=== PATIENT | male | born 1990 | race Caucasian/White ===

== ENCOUNTER 2018-01-07 03:07 | Day surgery (SDC) | payer BC, OTHER ==
[2018-01-07] MEDS ORDERED: Sodium Chloride 0.9% 10 ML Syringe FLUSH PRN (03:19)
[2018-01-07] MEDS ORDERED: Sodium Chloride 0.9% 2.5 ML Syringe FLUSH PRN (03:19)
[2018-01-07] MEDS ORDERED: Ondansetron 4 MG/2 ML SDV ONE ×2 (03:25→06:54)
[2018-01-07] MEDS ORDERED: Sodium Chloride 0.9% 1,000 ML IV ONE (03:28)
[2018-01-07] MEDS ORDERED: HYDROmorphone 1 MG/ML Syringe IVPUSH ONE (03:29)
[2018-01-07] MEDS ORDERED: Ondansetron 4 MG/2 ML SDV IVPUSH PRN (03:30)
--- NOTE | 2018-01-07 03:34 | EDM.PDOC ---
ED HPI GENERAL MEDICAL PROBLEM - General Chief Complaint: Abdominal Pain Stated Complaint: THROWING UP Time Seen by Provider: 01/07/18 03:15 - History of Present Illness INITIAL COMMENTS - FREE TEXT/NARRATIVE: HISTORY AND PHYSICAL: History of present illness: The patient is a 27-year-old male who presents complaining of a right lower quadrant pain and vomiting. The patient says that earlier today he had diffuse abdominal pain that started around 6 PM and then it seemed to localize in the right lower quadrant and even start vomiting until approximately 2 hours ago. Mom says that he had an "upset stomach" on and off for the last 2 days but it seemed to accelerate today. The patient has not had any upper respiratory symptoms cough chest pain or shortness of breath no fevers or chills or sore throat and no urinary complaints. He has no history of any abdominal surgeries. He has not eaten any new foods but he does eat fast foods and has no history of food intolerance. He has not had any recent alcohol consumption and he does not take any medications for these symptoms prior to coming here. The patient has no GI history and follows with Dr. Ron Negro at [facility] but only sees him as needed for medical complaints but not for checkups. He denies any black or bloody stools and no black or blood in his vomitus. He has normal regular bowel movements. Review of systems: As per history of present illness and below otherwise all systems reviewed and negative. Past medical history: As per history of present illness and as reviewed below otherwise noncontributory. Surgical history: As per history of present illness and as reviewed below otherwise noncontributory. Social history: No reported history of drug or alcohol abuse. Family history: As per history of present illness and as reviewed below otherwise noncontributory. Physical exam: General: Well-developed well-nourished mildly overweight man is nontoxic and vital signs are reviewed by me. Patient is having dry heaves when initially seen him in the ED for my evaluation and the small amount of vomitus as being produced is whitish in color. HEENT: Atraumatic, normocephalic, negative for conjunctival pallor or scleral icterus, mucous membranes tacky, throat clear, neck supple, nontender, trachea midline. Lungs: Clear to auscultation, breath sounds equal bilaterally, chest nontender. Heart: S1S2, regular rate and rhythm no overt murmurs Abdomen: Soft, nondistended, hypoactive bowel sounds and no tympany on percussion but there is tenderness in the right lower quadrant with some voluntary guarding but no involuntary guarding or rebound. Negative for masses or hepatosplenomegaly. Negative for costovertebral tenderness. Pelvis: Stable nontender. Genitourinary: Deferred. Rectal: Deferred. Extremities: Atraumatic, negative for cords or calf pain. Neurovascular unremarkable. Neuro: Awake, alert, oriented. Cranial nerves II through XII unremarkable. Cerebellum unremarkable. Motor and sensory unremarkable throughout. Exam nonfocal. Skin: Normal turgor noted and some any overt rashes or lesion and because the patient is actively having dry heaves intermittently he is sweaty Diagnostics: CBC CMP amylase lipase CT scan of the abdomen and pelvis Therapeutics: IV fluids Zofran Dilaudid Mefoxin Testing results were discussed with the patient and parents at bedside and were discussed with Dr. Luong at 5:16 AM. The patient will remain in the emergency department until Dr. Luong comes in and he will take him to surgery. He requests that Mefoxin IV be given. The patient has been comfortable in the ED with less pain no nausea no vomiting and no longer diaphoretic. Impression: Acute appendicitis Definitive disposition and diagnosis as appropriate pending reevaluation and review of above. abdomen Pain Score (Numeric/FACES): 8 - Related Data Allergies Allergy/AdvReac Type Severity Reaction Status Date / Time codeine Allergy Rash Verified 01/07/18 03:29 Home Meds: Home Meds . [No Known Home Meds] 01/07/18 [History] Past Medical History - Past Health History Medical/Surgical History: Denies Medical/Surgical History - Infectious Disease History Infectious Disease History: Reports: Chicken Pox, Measles Social & Family History - Family History Family Medical History: Noncontributory - Tobacco Use Smoking Status *Q: Never Smoker Second Hand Smoke Exposure: No - Caffeine Use Caffeine Use: Reports: Energy Drinks - Recreational Drug Use Recreational Drug Use: No ED ROS GENERAL - Review of Systems Review Of Systems: ROS reveals no pertinent complaints other than HPI. ED EXAM, GENERAL - Physical Exam Exam: See Below (See dictation) Course - Vital Signs Last Recorded V/S: Last Vital Signs Temp 36.4 C 01/07/18 05:03 Pulse 63 01/07/18 05:03 Resp 17 01/07/18 05:03 BP 118/71 01/07/18 05:03 Pulse Ox 96 01/07/18 05:03 - Orders/Labs/Meds Orders: Active Orders 24 hr Category Date Time Status Patient Status [ADT] Stat ADT 01/07/18 05:21 Ordered Abdomen Pelvis w Cont [CT] Stat Exams 01/07/18 03:28 Taken Lactated Ringers [Ringers, Lactated] 1,000 ml Med 01/07/18 04:45 Active IV ASDIRECTED Sodium Chloride 0.9% [Saline Flush] Med 01/07/18 03:19 Active 10 ml FLUSH ASDIRECTED PRN Sodium Chloride 0.9% [Saline Flush] Med 01/07/18 03:19 Active 2.5 ml FLUSH ASDIRECTED PRN cefOXitin [Mefoxin in Dextrose,Iso-Osm 2 GM/50 ML] 2 gm Med 01/07/18 05:18 Ordered Premix Bag 1 bag IV ONETIME Saline Lock Insert [OM.PC] Stat Oth 01/07/18 03:19 Ordered Medication Orders Lactated Ringer's (Ringers, Lactated) 1,000 mls @ 150 mls/hr IV ASDIRECTED MONICA Last Admin: 01/07/18 04:59 Dose: 150 mls/hr Cefoxitin Sodium 2 gm/ Premix 50 mls @ 100 mls/hr IV ONETIME ONE Stop: 01/07/18 05:47 Sodium Chloride (Saline Flush) 10 ml FLUSH ASDIRECTED PRN PRN Reason: Keep Vein Open Sodium Chloride (Saline Flush) 2.5 ml FLUSH ASDIRECTED PRN PRN Reason: Keep Vein Open Labs: Laboratory Tests 01/07/18 01/07/18 Range/Units 03:24 03:34 WBC 15.36 H (4.0-11.0) K/uL RBC 4.77 (4.50-5.90) M/uL Hgb 14.8 (13.0-17.0) g/dL Hct 42.5 (38.0-50.0) % MCV 89.1 (80.0-98.0) fL MCH 31.0 (27.0-32.0) pg MCHC 34.8 (31.0-37.0) g/dL RDW Std Deviation 40.5 (28.0-62.0) fl RDW Coeff of Ne 13 (11.0-15.0) % Plt Count 242 (150-400) K/uL MPV 8.60 (7.40-12.00) fL Neut % (Auto) 84.8 H (48.0-80.0) % Lymph % (Auto) 7.5 L (16.0-40.0) % [place] % (Auto) 7.2 (0.0-15.0) % Eos % (Auto) 0.3 (0.0-7.0) % Baso % (Auto) 0.2 (0.0-1.5) % Neut # (Auto) 13.0 H (1.4-5.7) K/uL Lymph # (Auto) 1.2 (0.6-2.4) K/uL [place] # (Auto) 1.1 H (0.0-0.8) K/uL Eos # (Auto) 0.1 (0.0-0.7) K/uL Baso # (Auto) 0.0 (0.0-0.1) K/uL Nucleated RBC % 0.0 /100WBC Nucleated RBCs # 0 K/uL Sodium 140 (136-148) mmol/L Potassium 4.7 (3.5-5.1) mmol/L Chloride 105 (98-107) mmol/L Carbon Dioxide 24.9 (21.0-32.0) mmol/L BUN 18 (7.0-18.0) mg/dL Creatinine 1.0 (0.8-1.3) mg/dL Est Cr Clr Drug Dosing 137.43 mL/min Estimated GFR (MDRD) > 60.0 ml/min Glucose 143 H (74-106) mg/dL Calcium 8.4 L (8.5-10.1) mg/dL Total Bilirubin 0.7 (0.2-1.0) mg/dL AST 20 (15-37) IU/L ALT 43 (14-63) IU/L Alkaline Phosphatase 95 (46-116) U/L Total Protein 6.6 (6.4-8.2) g/dL Albumin 3.8 (3.4-5.0) g/dL Globulin 2.8 (2.0-3.5) g/dL Albumin/Globulin Ratio 1.4 (1.3-2.8) Amylase 58 (25-115) U/L Lipase 154 (73-393) U/L Meds: Medications Generic Name Dose Route Start Last Admin Trade Name Freq PRN Reason Stop Dose Admin Lactated Ringer's 1,000 mls @ 150 mls/hr 01/07/18 04:45 01/07/18 04:59 Ringers, Lactated IV 150 mls/hr ASDIRECTED MONICA Administration Cefoxitin Sodium 2 gm/ Premix 50 mls @ 100 mls/hr 01/07/18 05:18 IV 01/07/18 05:47 ONETIME ONE Sodium Chloride 10 ml 01/07/18 03:19 Saline Flush FLUSH ASDIRECTED PRN Keep Vein Open Sodium Chloride 2.5 ml 01/07/18 03:19 Saline Flush FLUSH ASDIRECTED PRN Keep Vein Open Discontinued Medications Generic Name Dose Route Start Last Admin Trade Name Freq PRN Reason Stop Dose Admin Hydromorphone HCl 1 mg 01/07/18 03:29 01/07/18 03:33 Dilaudid IVPUSH 01/07/18 03:30 1 mg ONETIME ONE Administration Sodium Chloride 1,000 mls @ 999 mls/hr 01/07/18 03:28 01/07/18 03:30 Normal Saline IV 01/07/18 04:28 999 mls/hr STAT ONE Administration Iopamidol 100 ml 01/07/18 05:03 01/07/18 05:04 Isovue Multipack-370 (76%) IVPUSH 01/07/18 05:04 100 ml ONETIME STA Administration Ondansetron HCl Confirm 01/07/18 03:25 01/07/18 03:41 Zofran Administered 01/07/18 03:26 Not Given Dose 4 mg .ROUTE .STK-MED ONE Ondansetron HCl 4 mg 01/07/18 03:30 01/07/18 03:33 Zofran IVPUSH 4 mg Q4H PRN Administration Vomiting Departure - Departure Time of Disposition: 05:23 Disposition: DC/Tfer to Other 70 Condition: Good Clinical Impression: Appendicitis Qualifiers: Appendicitis type: acute appendicitis Acute appendicitis type: unspecified acute appendicitis type Qualified Code(s): K35.80 - Unspecified acute appendicitis - Discharge Information Referrals: Ron Mayo MD [Primary Care Provider] - Forms: ED Department Discharge - My Orders Last 24 Hours: My Active Orders 01/07/18 03:19 Sodium Chloride 0.9% [Saline Flush] 10 ml FLUSH ASDIRECTED PRN Sodium Chloride 0.9% [Saline Flush] 2.5 ml FLUSH ASDIRECTED PRN Saline Lock Insert [OM.PC] Stat 01/07/18 03:28 Abdomen Pelvis w Cont [CT] Stat 01/07/18 04:45 Lactated Ringers [Ringers, Lactated] 1,000 ml IV ASDIRECTED 01/07/18 05:18 cefOXitin [Mefoxin in Dextrose,Iso-Osm 2 GM/50 ML] 2 gm Premix Bag 1 bag IV ONETIME 01/07/18 05:21 Patient Status [ADT] Stat - Assessment/Plan Last 24 Hours: My Active Orders 01/07/18 03:19 Sodium Chloride 0.9% [Saline Flush] 10 ml FLUSH ASDIRECTED PRN Sodium Chloride 0.9% [Saline Flush] 2.5 ml FLUSH ASDIRECTED PRN Saline Lock Insert [OM.PC] Stat 01/07/18 03:28 Abdomen Pelvis w Cont [CT] Stat 01/07/18 04:45 Lactated Ringers [Ringers, Lactated] 1,000 ml IV ASDIRECTED 01/07/18 05:18 cefOXitin [Mefoxin in Dextrose,Iso-Osm 2 GM/50 ML] 2 gm Premix Bag 1 bag IV ONETIME 01/07/18 05:21 Patient Status [ADT] Stat
[2018-01-07 04:38] LABS: CHLORIDE,CL 105 mmol/L (98-107); SODIUM,NA 140 mmol/L (136-148)
[2018-01-07] MEDS ORDERED: Lactated Ringers 1,000 ML IV SCH ×2 (04:45→08:30)
[2018-01-07] MEDS ORDERED: Iopamidol 755 MG/ML 500 ML Multipack Bottle IVPUSH STA (05:03)
[2018-01-07] MEDS ORDERED: cefOXitin 2 GM in Premix Bag 1 BAG IV ONE (05:18)
--- NOTE | 2018-01-07 06:27 | PCM.HP ---
H&P History of Present Illness - General Date of Service: 01/07/18 Admit Problem/Dx: Admission Diagnosis/Problem Admission Diagnosis/Problem Acute appendicitis Source of Information: Patient, Family History Limitations: Reports: No Limitations - History of Present Illness Initial Comments - Free Text/Narative: Patient is a 27-year-old gentleman who became ill about 6:00 last night. Initially distended vague abdominal pain. Pain progressively that he is now unable to stand up straight and walk. He has had multiple episodes of nausea and vomiting. No diarrhea. Pain has now localized to the right lower quadrant. Symptom Onset Date: 01/06/18 Symptom Onset Time: 18:00 Duration of Symptoms: Reports: Getting Worse Location: Reports: Abdomen Quality: Reports: Ache, Pressure Severity: Moderate Improves with: Reports: Rest Worsens with: Reports: Movement Context: Reports: Sick Contact Associated Symptoms: Reports: Nausea/Vomiting abdomen Pain Score (Numeric/FACES): 8 - Related Data Allergies/Adverse Reactions: Allergies Allergy/AdvReac Type Severity Reaction Status Date / Time codeine Allergy Rash Verified 01/07/18 03:29 Home Medications: Home Meds . [No Known Home Meds] 01/07/18 [History] Past Medical History - Past Health History Medical/Surgical History: Denies Medical/Surgical History - Infectious Disease History Infectious Disease History: Reports: Chicken Pox, Measles Social & Family History - Family History Family Medical History: Noncontributory - Tobacco Use Smoking Status *Q: Never Smoker Second Hand Smoke Exposure: No - Caffeine Use Caffeine Use: Reports: Energy Drinks - Recreational Drug Use Recreational Drug Use: No H&P Review of Systems - Review of Systems: Review Of Systems: See Below General: Reports: Fever. Denies: Chills HEENT: Reports: No Symptoms Pulmonary: Denies: Shortness of Breath, Wheezing Cardiovascular: Denies: Chest Pain Gastrointestinal: Reports: Abdominal Pain, Anorexia, Nausea, Vomiting Genitourinary: Reports: No Symptoms Musculoskeletal: Reports: No Symptoms Skin: Reports: No Symptoms Psychiatric: Reports: No Symptoms Neurological: Reports: No Symptoms Hematologic/Lymphatic: Reports: No Symptoms Immunologic: Reports: No Symptoms Exam - Exam Exam: See Below - Vital Signs Vital Signs: Last Vital Signs Temp 97.6 F 01/07/18 05:03 Pulse 66 01/07/18 05:53 Resp 17 01/07/18 05:53 BP 139/89 01/07/18 05:53 Pulse Ox 96 01/07/18 05:53 Weight: 255 lb - Exam General: Alert, Oriented, Cooperative, Mild Distress HEENT: Conjunctiva Clear, EACs Clear, Nares Patent, Pupils Equal, Pupils Reactive, PERRLA Neck: Supple, Trachea Midline Lungs: Clear to Auscultation, Normal Respiratory Effort Cardiovascular: Regular Rate, Regular Rhythm. No: Tachycardia GI/Abdominal Exam: Soft, No Distention, Rebound, Tender, Abnormal Bowel Sounds ( hypoactive). No: Guarding, Rigid, Mass (Male) Exam: No Hernia, Normal Inspection Rectal (Males) Exam: Deferred Back Exam: Normal Inspection Extremities: Normal Inspection, Normal Range of Motion, No Pedal Edema, Normal Capillary Refill Peripheral Pulses: 4+: Posterior Tibial (L), Posterior Tibial (R), Dorsalis Pedis (L), Dorsalis Pedis (R) Skin: Warm, Intact, Other (prominent malar flush) - Patient Data Lab Results Last 24 hrs: Laboratory Results - last 24 hr 01/07/18 01/07/18 Range/Units 03:24 03:34 WBC 15.36 H (4.0-11.0) K/uL RBC 4.77 (4.50-5.90) M/uL Hgb 14.8 (13.0-17.0) g/dL Hct 42.5 (38.0-50.0) % MCV 89.1 (80.0-98.0) fL MCH 31.0 (27.0-32.0) pg MCHC 34.8 (31.0-37.0) g/dL RDW Std Deviation 40.5 (28.0-62.0) fl RDW Coeff of Ne 13 (11.0-15.0) % Plt Count 242 (150-400) K/uL MPV 8.60 (7.40-12.00) fL Neut % (Auto) 84.8 H (48.0-80.0) % Lymph % (Auto) 7.5 L (16.0-40.0) % [place] % (Auto) 7.2 (0.0-15.0) % Eos % (Auto) 0.3 (0.0-7.0) % Baso % (Auto) 0.2 (0.0-1.5) % Neut # (Auto) 13.0 H (1.4-5.7) K/uL Lymph # (Auto) 1.2 (0.6-2.4) K/uL [place] # (Auto) 1.1 H (0.0-0.8) K/uL Eos # (Auto) 0.1 (0.0-0.7) K/uL Baso # (Auto) 0.0 (0.0-0.1) K/uL Nucleated RBC % 0.0 /100WBC Nucleated RBCs # 0 K/uL Sodium 140 (136-148) mmol/L Potassium 4.7 (3.5-5.1) mmol/L Chloride 105 (98-107) mmol/L Carbon Dioxide 24.9 (21.0-32.0) mmol/L BUN 18 (7.0-18.0) mg/dL Creatinine 1.0 (0.8-1.3) mg/dL Est Cr Clr Drug Dosing 137.43 mL/min Estimated GFR (MDRD) > 60.0 ml/min Glucose 143 H (74-106) mg/dL Calcium 8.4 L (8.5-10.1) mg/dL Total Bilirubin 0.7 (0.2-1.0) mg/dL AST 20 (15-37) IU/L ALT 43 (14-63) IU/L Alkaline Phosphatase 95 (46-116) U/L Total Protein 6.6 (6.4-8.2) g/dL Albumin 3.8 (3.4-5.0) g/dL Globulin 2.8 (2.0-3.5) g/dL Albumin/Globulin Ratio 1.4 (1.3-2.8) Amylase 58 (25-115) U/L Lipase 154 (73-393) U/L Result Diagrams: 01/07/18 03:34 01/07/18 03:24 - Problem List (1) Appendicitis SNOMED Code(s): 65144606 ICD Code: K37 - UNSPECIFIED APPENDICITIS Status: Acute Current Visit: Yes Qualifiers: Appendicitis type: acute appendicitis Acute appendicitis type: unspecified acute appendicitis type Qualified Code(s): K35.80 - Unspecified acute appendicitis Problem List Initiated/Reviewed/Updated: Yes Orders Last 24hrs: Active Orders 24 hr Category Date Time Status Patient Status [ADT] Stat ADT 01/07/18 05:21 Active Kyle Catheter Insertion [Insert Urinary Catheter] [OM. Care 01/07/18 06:30 Ordered PC] Q24H Up ad Audrey [RC] ASDIRECTED Care 01/07/18 06:21 Ordered Urinary Catheter Assessment [RC] ASDIRECTED Care 01/07/18 06:22 Ordered Verify Patient Consent Obtain [RC] .PREOP Care 01/07/18 06:21 Ordered Vital Signs [RC] PER UNIT ROUTINE Care 01/07/18 06:21 Ordered Nothing Per Oral Diet [DIET] Diet 01/07/18 Breakfast Ordered Abdomen Pelvis w Cont [CT] Stat Exams 01/07/18 03:28 Taken Lactated Ringers [Ringers, Lactated] 1,000 ml Med 01/07/18 04:45 Active IV ASDIRECTED Lactated Ringers [Ringers, Lactated] 1,000 ml Med 01/07/18 06:30 Ordered IV ASDIRECTED Sodium Chloride 0.9% [Saline Flush] Med 01/07/18 03:19 Active 10 ml FLUSH ASDIRECTED PRN Sodium Chloride 0.9% [Saline Flush] Med 01/07/18 03:19 Active 2.5 ml FLUSH ASDIRECTED PRN Antiembolic Hose [OM.PC] PER UNIT ROUTINE Oth 01/07/18 06:00 Ordered Antiembolic Hose [OM.PC] PER UNIT ROUTINE Oth 01/08/18 06:00 Ordered Saline Lock Insert [OM.PC] Stat Oth 01/07/18 03:19 Ordered Sequential Compression Device [OM.PC] Routine Oth 01/07/18 06:21 Ordered Resuscitation Status Routine Resus Stat 01/07/18 06:21 Ordered Medication Orders Lactated Ringer's (Ringers, Lactated) 1,000 mls @ 150 mls/hr IV ASDIRECTED MONICA Last Admin: 01/07/18 04:59 Dose: 150 mls/hr Sodium Chloride (Saline Flush) 10 ml FLUSH ASDIRECTED PRN PRN Reason: Keep Vein Open Sodium Chloride (Saline Flush) 2.5 ml FLUSH ASDIRECTED PRN PRN Reason: Keep Vein Open Assessment/Plan Comment:: Laparoscopic appendectomy, possible open appendectomy. Both operative procedures, along with the risks, including, but not limited to, bleeding, infection, pneumonia, deep venous thrombosis, pulmonary emboli, myocardial infarction, and adjacent organ injury have been reviewed with the patient who voices understanding, offers no questions and agrees to proceed.
[2018-01-07] MEDS ORDERED: Bupivacaine 0.5% 10 ML SDV ONE (06:49)
[2018-01-07] MEDS ORDERED: ceFAZolin 1 GM Vial ONE (06:49)
[2018-01-07] MEDS ORDERED: fentaNYL 250 MCG/5 ML SDV ONE (06:54)
[2018-01-07] MEDS ORDERED: Midazolam 1 MG/ML 2 ML SDV ONE (06:54)
[2018-01-07] MEDS ORDERED: Rocuronium 10 MG/ML 10 ML Syringe ONE (06:54)
[2018-01-07] MEDS ORDERED: Lidocaine 2% 5 ML SDV ONE (06:54)
[2018-01-07] MEDS ORDERED: Propofol 200 MG/20 ML SDV ONE (06:54)
[2018-01-07] MEDS ORDERED: diphenhydrAMINE 50 MG/ML SDV ONE (06:56)
[2018-01-07] MEDS ORDERED: Dexamethasone 4 MG/ML 5 ML MDV ONE (06:56)
[2018-01-07] MEDS ORDERED: fentaNYL 100 MCG/2 ML SDV IVPUSH PRN (07:30)
--- NOTE | 2018-01-07 07:46 | PCM.PREANE ---
Preanesthetic Assessment - Anesthesia/Transfusion/Family Hx Anesthesia History: No Prior Anesthesia Family History of Anesthesia Reaction: No Transfusion History: No Prior Transfusion(s) Intubation History: Unknown - Review of Systems General: No Symptoms Pulmonary: No Symptoms Cardiovascular: Orthopnea Gastrointestinal: Abdominal Pain, Vomiting Neurological: No Symptoms Other: Reports: None - Physical Assessment O2 Sat by Pulse Oximetry: 96 Respiratory Rate: 17 Vital Signs: Last Vital Signs Temp 36.4 C 01/07/18 05:03 Pulse 66 01/07/18 05:53 Resp 17 01/07/18 05:53 BP 139/89 01/07/18 05:53 Pulse Ox 96 01/07/18 05:53 Height: 1.93 m Weight: 115.666 kg ASA Class: 2E Mental Status: Alert & Oriented x3 Airway Class: Mallampati = 2 Dentition: Reports: Normal Dentition Thyro-Mental Finger Breadths: 3 Mouth Opening Finger Breadths: 3 ROM/Head Extension: Full Lungs: Clear to Auscultation, Normal Respiratory Effort Cardiovascular: Regular Rate, Regular Rhythm - Lab Values: Laboratory Last Values WBC 15.36 K/uL (4.0-11.0) H 01/07/18 03:34 RBC 4.77 M/uL (4.50-5.90) 01/07/18 03:34 Hgb 14.8 g/dL (13.0-17.0) 01/07/18 03:34 Hct 42.5 % (38.0-50.0) 01/07/18 03:34 MCV 89.1 fL (80.0-98.0) 01/07/18 03:34 MCH 31.0 pg (27.0-32.0) 01/07/18 03:34 MCHC 34.8 g/dL (31.0-37.0) 01/07/18 03:34 RDW Std Deviation 40.5 fl (28.0-62.0) 01/07/18 03:34 RDW Coeff of Ne 13 % (11.0-15.0) 01/07/18 03:34 Plt Count 242 K/uL (150-400) 01/07/18 03:34 MPV 8.60 fL (7.40-12.00) 01/07/18 03:34 Neut % (Auto) 84.8 % (48.0-80.0) H 01/07/18 03:34 Lymph % (Auto) 7.5 % (16.0-40.0) L 01/07/18 03:34 [place] % (Auto) 7.2 % (0.0-15.0) 01/07/18 03:34 Eos % (Auto) 0.3 % (0.0-7.0) 01/07/18 03:34 Baso % (Auto) 0.2 % (0.0-1.5) 01/07/18 03:34 Neut # (Auto) 13.0 K/uL (1.4-5.7) H 01/07/18 03:34 Lymph # (Auto) 1.2 K/uL (0.6-2.4) 01/07/18 03:34 [place] # (Auto) 1.1 K/uL (0.0-0.8) H 01/07/18 03:34 Eos # (Auto) 0.1 K/uL (0.0-0.7) 01/07/18 03:34 Baso # (Auto) 0.0 K/uL (0.0-0.1) 01/07/18 03:34 Nucleated RBC % 0.0 /100WBC 01/07/18 03:34 Nucleated RBCs # 0 K/uL 01/07/18 03:34 Sodium 140 mmol/L (136-148) 01/07/18 03:24 Potassium 4.7 mmol/L (3.5-5.1) 01/07/18 03:24 Chloride 105 mmol/L (98-107) 01/07/18 03:24 Carbon Dioxide 24.9 mmol/L (21.0-32.0) 01/07/18 03:24 BUN 18 mg/dL (7.0-18.0) 01/07/18 03:24 Creatinine 1.0 mg/dL (0.8-1.3) 01/07/18 03:24 Est Cr Clr Drug Dosing 137.43 mL/min 01/07/18 03:24 Estimated GFR (MDRD) > 60.0 ml/min 01/07/18 03:24 Glucose 143 mg/dL (74-106) H 01/07/18 03:24 Calcium 8.4 mg/dL (8.5-10.1) L 01/07/18 03:24 Total Bilirubin 0.7 mg/dL (0.2-1.0) 01/07/18 03:24 AST 20 IU/L (15-37) 01/07/18 03:24 ALT 43 IU/L (14-63) 01/07/18 03:24 Alkaline Phosphatase 95 U/L (46-116) 01/07/18 03:24 Total Protein 6.6 g/dL (6.4-8.2) 01/07/18 03:24 Albumin 3.8 g/dL (3.4-5.0) 01/07/18 03:24 Globulin 2.8 g/dL (2.0-3.5) 01/07/18 03:24 Albumin/Globulin Ratio 1.4 (1.3-2.8) 01/07/18 03:24 Amylase 58 U/L (25-115) 01/07/18 03:24 Lipase 154 U/L (73-393) 01/07/18 03:24 - Allergies Allergies/Adverse Reactions: Allergies Allergy/AdvReac Type Severity Reaction Status Date / Time codeine Allergy Rash Verified 01/07/18 03:29 - Blood Blood Available: No - Anesthesia Plan Pre-Op Medication Ordered: None - Acknowledgements Anesthesia Type Planned: General Anesthesia Pt an Appropriate Candidate for the Planned Anesthesia: Yes Alternatives and Risks of Anesthesia Discussed w Pt/Guardian: Yes Pt/Guardian Understands and Agrees with Anesthesia Plan: Yes PreAnesthesia Questionnaire - Past Health History Medical/Surgical History: Denies Medical/Surgical History Genitourinary History: Reports: Other (See Below) (acute appendicitis) Endocrine/Metabolic History: Reports: Obesity/BMI 30+ - Infectious Disease History Infectious Disease History: Reports: Chicken Pox, Measles - SUBSTANCE USE Smoking Status *Q: Never Smoker Second Hand Smoke Exposure: No Recreational Drug Use History: No - HOME MEDS Home Medications: Home Meds . [No Known Home Meds] 01/07/18 [History] - CURRENT (IN HOUSE) MEDS Current Meds: Current Medications Fentanyl (Sublimaze) 50 mcg IVPUSH SEECOMMENT PRN PRN Reason: Pain (moderate 4-6) Lactated Ringer's (Ringers, Lactated) 1,000 mls @ 150 mls/hr IV ASDIRECTED MONICA Last Admin: 01/07/18 04:59 Dose: 150 mls/hr Lactated Ringer's (Ringers, Lactated) 1,000 mls @ 150 mls/hr IV ASDIRECTED MONICA Sodium Chloride (Saline Flush) 10 ml FLUSH ASDIRECTED PRN PRN Reason: Keep Vein Open Sodium Chloride (Saline Flush) 2.5 ml FLUSH ASDIRECTED PRN PRN Reason: Keep Vein Open Discontinued Medications Bupivacaine HCl (Sensorcaine-Mpf 0.5%) Confirm Administered Dose 20 ml .ROUTE .STK-MED ONE Stop: 01/07/18 06:50 Cefazolin Sodium (Ancef) Confirm Administered Dose 1 gm .ROUTE .STK-MED ONE Stop: 01/07/18 06:50 Dexamethasone (Dexamethasone) Confirm Administered Dose 20 mg .ROUTE .STK-MED ONE Stop: 01/07/18 06:57 Diphenhydramine HCl (Benadryl) Confirm Administered Dose 50 mg .ROUTE .STK-MED ONE Stop: 01/07/18 06:57 Fentanyl (Sublimaze) Confirm Administered Dose 250 mcg .ROUTE .STK-MED ONE Stop: 01/07/18 06:55 Hydromorphone HCl (Dilaudid) 1 mg IVPUSH ONETIME ONE Stop: 01/07/18 03:30 Last Admin: 01/07/18 03:33 Dose: 1 mg Sodium Chloride (Normal Saline) 1,000 mls @ 999 mls/hr IV STAT ONE Stop: 01/07/18 04:28 Last Admin: 01/07/18 03:30 Dose: 999 mls/hr Cefoxitin Sodium 2 gm/ Premix 50 mls @ 100 mls/hr IV ONETIME ONE Stop: 01/07/18 05:47 Last Admin: 01/07/18 05:25 Dose: 100 mls/hr Iopamidol (Isovue Multipack-370 (76%)) 100 ml IVPUSH ONETIME STA Stop: 01/07/18 05:04 Last Admin: 01/07/18 05:04 Dose: 100 ml Lidocaine (Xylocaine-Mpf 2%) Confirm Administered Dose 5 ml .ROUTE .STK-MED ONE Stop: 01/07/18 06:55 Midazolam HCl (Versed 1 Mg/Ml) Confirm Administered Dose 2 mg .ROUTE .STK-MED ONE Stop: 01/07/18 06:55 Ondansetron HCl (Zofran) Confirm Administered Dose 4 mg .ROUTE .STK-MED ONE Stop: 01/07/18 03:26 Last Admin: 01/07/18 03:41 Dose: Not Given Ondansetron HCl (Zofran) 4 mg IVPUSH Q4H PRN PRN Reason: Vomiting Last Admin: 01/07/18 03:33 Dose: 4 mg Ondansetron HCl (Zofran) Confirm Administered Dose 4 mg .ROUTE .STK-MED ONE Stop: 01/07/18 06:55 Propofol (Diprivan 20 Ml) Confirm Administered Dose 200 mg .ROUTE .STK-MED ONE Stop: 01/07/18 06:55 Rocuronium [place] (Zemuron) Confirm Administered Dose 100 mg .ROUTE .STK-MED ONE Stop: 01/07/18 06:55
[2018-01-07] MEDS ORDERED: Ketorolac 30 MG/ML SDV ONE (07:49)
[2018-01-07] MEDS ORDERED: Morphine 10 MG/ML Syringe IVPUSH PRN (08:18)
--- NOTE | 2018-01-07 08:22 | PCM.OPNOTE ---
- General Post-Op/Procedure Note Date of Surgery/Procedure: 01/07/18 Operative Procedure(s): Laparoscopic appendectomy Pre Op Diagnosis: Acute abdomen Post-Op Diagnosis: Acute nonruptured appendicitis with localized peritonitis Anesthesia Technique: General ET Tube (ASA IIE) Primary Surgeon: Gigi Luong Fluid Replacement, Intraop: 1,100 Output, Urine Amount: 1,000 EBL in mLs: 20 Condition: Fair Free Text/Narrative:: DICTATION [id number] CPT CODE 47558
--- NOTE | 2018-01-07 11:48 | CT ---
EXAM DATE: 01/07/18 PATIENT'S AGE: 27 Patient: SAJI LAGUNA Facility: [place], [place] Site . Site : 1990 Study: CT Abdomen/Pelvis [id number]/27/2018 5:01:41 AM Ordering Physician: Ronnie Kumari Final Report: INDICATION: Right lower quadrant pain TECHNIQUE: CT abdomen and pelvis acquired with IV contrast. 100 cc Isovue 370 COMPARISON: None FINDINGS: Lower chest: Unremarkable. Liver: Unremarkable. Spleen: Unremarkable. Pancreas: Unremarkable. Gallbladder and bile ducts: Unremarkable. Kidneys: Unremarkable. Adrenal glands: Unremarkable. GI tract: Unremarkable. The appendix is dilated up to 11 millimeters, fluid- filled and thick-walled and contains multiple appendicoliths. Adjacent fat stranding noted. Findings consistent with acute appendicitis. Vascular structures: Unremarkable. Lymph nodes: Unremarkable. Miscellaneous: Unremarkable. No free air or significant free fluid. Pelvic Organs: Unremarkable. Bones: Unremarkable for age. IMPRESSION: Fluid filled, thick-walled and dilated appendix with multiple appendicular is adjacent inflammatory stranding. Findings consistent with acute appendicitis. Dictated by Edgar Mock MD @ 01/07/2018 5:11:22 AM Dictated by: Edgar Mock MD @ 01/07/2018 05:11:26 (Electronic Signature) Report Signed by Proxy. [facility]
--- NOTE | 2018-01-07 12:08 | OR ---
SURGEON: Gigi Luong M.D. DATE OF PROCEDURE: 01/07/2018 OPERATION PERFORMED: Laparoscopic appendectomy. ANESTHESIA: General endotracheal. ASA CLASSIFICATION: 2E. PREOPERATIVE DIAGNOSIS: Acute abdomen. POSTOPERATIVE DIAGNOSIS: Acute nonruptured appendicitis with localized peritonitis. DESCRIPTION OF PROCEDURE: The patient was taken to the operating room, placed on the operating table in the supine position. Time-out was called for appropriate identification of the patient and procedure. Thigh-high TEDs and sequential compression boots were placed. Following satisfactory attainment of general endotracheal anesthesia, a Kyle catheter was placed in the patient's urinary bladder. The abdomen was prepped with DuraPrep solution, sterile drapes were applied. The skin just above the umbilicus was infiltrated with 0.5% Marcaine solution. The skin incision was made and deepened through the subcutaneous tissue obtaining hemostasis with the use of electrocautery. The Veress needle was introduced into the peritoneal cavity. Saline drop test was positive. Carbon dioxide pneumoperitoneum was established with the relief set at 13 cm of water. Once satisfactory pneumoperitoneum was established, 5-mm camera and port were placed through the supraumbilical incision. The patient was now positioned with his head down and rolled to the left. Under camera vision, 12-mm suprapubic and 5- mm left lower quadrant ports were placed. Each incision was preemptively infiltrated with 0.5% Marcaine solution. The appendix was identified and was acutely inflamed. The mesoappendix was taken down with the Harmonic scalpel. The base of the appendix was doubly ligated with 0 PDS Endo-loops. The appendix was then transected distal to the second tie with the Harmonic scalpel. The appendix was promptly placed in an Endopouch to avoid contamination. The right lower quadrant was inspected for hemostasis, no bleeding was noted. The right lower quadrant was then irrigated with several 100 mL of sterile saline solution. All fluid was aspirated. There was no spill of GI content and the appendiceal stump was carefully examined and appeared satisfactorily ligated. The patient was now positioned in the neutral position. The Endopouch containing appendix was removed through the 12-mm suprapubic port removing the port at the same time. Under camera vision, the 5 mm left lower quadrant port was removed and finally the supraumbilical camera and port were removed. The wounds were inspected for hemostasis and small bleeding sites were electrocoagulated. The suprapubic and supraumbilical incisions were closed in 2 layers approximating the subcutaneous tissue with 3-0 Polysorb and the skin with subcuticular 4-0 Monocryl. The left lower quadrant incision was closed with subcuticular 4-0 Monocryl. All incisions were Steri-Stripped and dressed with sterile Tegaderm pads. Sponge, needle, and instrument counts were all correct. Kyle catheter was removed prior to emergence from anesthesia. Following emergence from anesthesia and extubation, the patient was taken to recovery room in stable condition. MARILYN VASQUEZ /[id number]
[2018-01-07] MEDS: traMADol 50 MG Tab PO PRN ×2 (12:49→20:38)
[2018-01-07] MEDS: Lactated Ringers 1,000 ML IV SCH (20:13)
[2018-01-08] MEDS: Lactated Ringers 1,000 ML IV SCH (02:23)
[2018-01-08] MEDS: traMADol 50 MG Tab PO PRN (06:03)
--- NOTE | 2018-01-08 07:01 | PCM48HPAN ---
Post Anesthesia Note - EVALUATION WITHIN 48HRS OF ANESTHETIC Vital Signs in Normal Range: Yes Patient Participated in Evaluation: Yes Respiratory Function Stable: Yes Airway Patent: Yes Cardiovascular Function Stable: Yes Hydration Status Stable: Yes Pain Control Satisfactory: Yes Nausea and Vomiting Control Satisfactory: Yes Mental Status Recovered: Yes Resp Rate: 20
== END 2018-01-08 09:16 | disposition home or self-care (01) ==
LOC: MW.ED 03:07 → MW.SDS 05:24 → MW.MS 08:28 → MW.SDS 01-08 09:16
PROVIDERS: ATTEND Surgery
PROC: 0DTJ4ZZ Resection of Appendix, Percutaneous Endoscopic Approach (ICD-10-PCS; principal; 2018-01-07)
DX: K35.80 Unspecified acute appendicitis (principal); Z88.5 Allergy status to narcotic agent
CPT/HCPCS: 44970; 74177; 80053; 82150; 83690; 85025; 96361; 96365; 96366; 96368; 96375; 99285; A9270; J1100; J1170; J1200; J1885; J2250; J2405; J3010; J7040; J7120; Q9967; 88304; J0690; J2704

== ENCOUNTER 2025-04-13 21:02 | Emergency (ER) | payer BC ==
[2025-04-13] MEDS ORDERED: Sodium Chloride 0.9% 2.5 ML Syringe FLUSH PRN (21:15)
[2025-04-13] MEDS ORDERED: Sodium Chloride 0.9% 10 ML Syringe FLUSH PRN (21:15)
[2025-04-13] MEDS: Ondansetron 4 MG/2 ML SDV IVPUSH ONE (21:28)
[2025-04-13] MEDS: Ketorolac 30 MG/ML SDV IVPUSH ONE ×2 (21:28→23:34)
[2025-04-13 21:29] LABS: BASOPHILS ABSOLUTE AUTO 0.04 K/uL (0.00-0.20); BASOPHILS PERCENT AUTO 0.4 % (0.0-1.0); EOSINOPHILS ABSOLUTE AUTO 0.19 K/uL (0.00-0.45); EOSINOPHILS PERCENT AUTO 2.0 % (0.0-6.0); IMMATURE GRAN ABSOLUTE AUTO 0.03 K/uL (0.00-0.05); IMMATURE GRAN PERCENT AUTO 0.3 % (0.0-0.4); LYMPHOCYTES ABSOLUTE AUTO 2.07 K/uL (1.00-4.80); LYMPHOCYTES PERCENT AUTO 21.8 % (24.0-44.0); MEAN PLATELET VOLUME 8.8 fL (9.4-12.4); MONOCYTES ABSOLUTE AUTO 0.80 K/uL (0.00-0.80); MONOCYTES PERCENT AUTO 8.4 % (0.0-8.0); NEUTROPHILS ABSOLUTE AUTO 6.35 K/uL (1.80-7.70); NEUTROPHILS PERCENT AUTO 67.1 % (41.0-71.0); NRBC ABSOLUTE 0.00 K/uL (0.00-0.02); NRBC PERCENT 0.0 /100WBC (0.0-0.2); PLATELET COUNT,PLT 264 K/uL (150-400); RED BLOOD CELL COUNT 4.95 M/uL (4.52-5.90); WHITE BLOOD CELL COUNT,WBC 9.48 K/uL (3.9-11.3)
[2025-04-13 21:51] LABS: A/G RATIO 1.4 (0.9-1.6); ALANINE AMINOTRANSFERASE,ALT 69 IU/L (14-63); ASPARTATE AMNIOTRANSFERASE,AST 35 IU/L (15-37); BILIRUBIN TOTAL 0.4 mg/dL (0.2-1.0); BLOOD UREA NITROGEN,BUN 25 mg/dL (7.0-18.0); CARBON DIOXIDE,CO2 22.2 mmol/L (21.0-32.0); CHLORIDE,CL 105 mmol/L (98-107); CREATININE 1.1 mg/dL (0.8-1.3); GLUCOSE RANDOM 137 mg/dL (74-106); POTASSIUM,K 3.7 mmol/L (3.5-5.1); PROTEIN TOTAL,TP 7.3 g/dL (6.4-8.2); SODIUM,NA 140 mmol/L (136-148)
[2025-04-13 21:52] LABS: ESTIMATED GFR 91 mL/min (>60)
[2025-04-13] MEDS: fentaNYL 50 MCG/ML SDV IVPUSH ONE (22:59)
== END 2025-04-13 23:43 | disposition home or self-care (01) ==
LOC: MW.ED 21:02
DX: T20.27XA Burn of second degree of neck, initial encounter (principal); T21.21XA Burn of second degree of chest wall, initial encounter; T24.222A Burn of second degree of left knee, initial encounter; T31.0 Burns involving less than 10% of body surface; E66.9 Obesity, unspecified; Z88.8 Allergy status to other drugs, medicaments and biological substances; W40.1XXA Explosion of explosive gases, initial encounter
CPT/HCPCS: 16020; 36415; 80053; 85025; 96374; 96375; 96376; 99283; A9270; J1885; J2405; J3010; 99284